=== PATIENT | male | born 1990 | race Caucasian/White ===

== ENCOUNTER 2019-05-27 07:27 | Emergency (ER) | payer OTHER ==
[~2019-05-27] VITALS: Ht 175.3 cm; Wt 85.3 kg
--- NOTE | 2019-05-27 07:50 | NUR ---
Patient ambulated to bed 4. RN evaluating patient at bedside.
[2019-05-27 07:54] VITALS: BP 103/65
--- NOTE | 2019-05-27 08:03 | NUR ---
Dr. De Leon is evaluating the patient at bedside.
[2019-05-27] MEDS ORDERED: ALBUTEROL SULFATE/IPRATROPIU 3 ML SOL IH ONE (08:05)
--- NOTE | 2019-05-27 08:20 | NUR ---
RT AT BEDSIDE.
--- NOTE | 2019-05-27 08:30 | NUR ---
C/O SOB WITH HACKING COUGH, THICK PHLEGM, BODY/EAR/THROAT PAIN X 2 DAYS ACCOMPANIED BY LOW GRADE FEVER .PT NOW WITH 3 EPISODES OF DIARRHEA . PT AWAKE , ALERT, AMBULATORY WITH STEADY GAIT. SCE , COARSE BREATH SOUND ALL THROUGH OUT. ACCOMPANIED BY CHEST PAIN OF 8/1O .SELF MEDICATED WITH MOTRIN WITH SOME RELIEF. HX--DENIES RX--NONE
--- NOTE | 2019-05-27 08:58 | NUR ---
xray at bedside.
--- NOTE | 2019-05-27 09:42 | NUR ---
Patient discharged with v/s stable. Written and verbal after care instructions given and explained regarding cough. Patient alert, oriented and verbalized understanding of instructions. Ambulatory with to car. All questions addressed prior to discharge. ID band removed. Patient advised to follow up with PMD. Rx of tamiflu ,ibuprofen,albuterol given. Patient educated on indication of medication including possible reaction and side effects. Opportunity to ask questions provided and answered. Excuse from work given.
[2019-05-27 09:43] VITALS: BP 107/52
== END 2019-05-27 09:42 | disposition home or self-care (01) ==
LOC: MED 07:27
DX: B34.9 Viral infection, unspecified (principal); R05 Cough; J02.9 Acute pharyngitis, unspecified; H83.8X9 Other specified diseases of inner ear, unspecified ear
CPT/HCPCS: 71045; 94640; 99283; J7620; Q0092

== ENCOUNTER 2019-05-31 17:05 | Emergency (ER) | payer OTHER ==
[~2019-05-31] VITALS: Ht 180.3 cm; Wt 88.9 kg
[2019-05-31 17:14] VITALS: BP 133/75
--- NOTE | 2019-05-31 17:18 | NUR ---
PT TO BED 12 WITH STEADY GAIT
--- NOTE | 2019-05-31 17:22 | NUR ---
FLU SWAB COLLECTED
--- NOTE | 2019-05-31 17:57 | NUR ---
29/M C/O LOWER BACK PAIN BILATERALLY X 2 DAYS WORSENING. DENIES UTI SYMPTOMS, DENIES INJURY. PAIN 9/10, CONSTANT, SHARP. WAS SEEN HERE 5 DAYS AGO, DX OF FLU, RX OF TAMIFLU AND INHALER AND TYLENOL. ALSO STATES CHEST PAIN WITH COUGH AND DEEP INSPIRATION. STATES MIGRAINE. STATES RHINORRHEA, COUGH, N/V X 2 NONBLOODY TODAY, DIARRHEA NONBLOODY. STATES FEELS WEAK. HX- GASTRIC BYPASS
--- NOTE | 2019-05-31 18:02 | NUR ---
SHARON MCCLAIN EVALUATING PT AT BEDSIDE.
[2019-05-31] MEDS: ONDANSETRON 4 MG/2 ML VIAL IVP ONE (18:18)
[2019-05-31] MEDS: KETOROLAC 30 MG/ML VIAL IVP ONE (18:18)
[2019-05-31] MEDS: DICYCLOMINE 20 MG/2 ML VIAL IM ONE (18:19)
[2019-05-31] MEDS: NACL 0.9% 1,000 ML IV ONE (18:19)
[2019-05-31 18:20] LABS: APPEARANCE,URINE CLEAR (CLEAR); BILIRUBIN,URINE NEGATIVE (NEGATIVE); BLOOD, URINE NEGATIVE (NEGATIVE); COLOR,URINE YELLOW (YELLOW); LEUKOCYTE ESTERASE ,URINE NEGATIVE (NEGATIVE); NITRITE, URINE NEGATIVE (NEGATIVE); UGLUCOSE TRACE (NEGATIVE)
[2019-05-31 18:53] LABS: BASOPHILS % (AUTO) 0.6 % (0.0-2.0); EOSINOPHILS # (AUTO) 0.1 K/uL (0-0.4); HEMATOCRIT 41.6 % (36-52); HEMOGLOBIN 13.4 g/dL (12.0-18.0); LYMPHOCYTES # (AUTO) 1.4 K/uL (2.0-11.5); LYMPHOCYTES % (AUTO) 23.1 % (20.5-51.1); MEAN CORPUSCULAR HEMOGLOBIN 29 pg (27-31); MEAN CORPUSCULAR HGB CONC 32 g/dL (33-37); MEAN CORPUSCULAR VOLUME 90.1 fL (80-94); MONOCYTES # (AUTO) 0.8 K/uL (0.8-1.0); MONOCYTES % (AUTO) 12.6 % (1.7-9.3); NEUTROPHILS # (AUTO) 3.9 K/uL (1.8-7.7); NEUTROPHILS % (AUTO) 61.7 % (42.2-75.2); PLATELET COUNT (AUTO) 260 K/uL (140-450); RED BLOOD CELL COUNT(AUTO) 4.62 MIL/uL (4.20-6.10); RED CELL DISTRIBUTION WIDTH 13.2 % (11.6-13.7); WHITE BLOOD COUNT (AUTO) 6.3 K/uL (4.8-10.8)
[2019-05-31 19:04] LABS: ANION GAP 10.4 (8-16); CARBON DIOXIDE 28.6 mmol/L (21-32); CREATININE 0.8 mg/dL (0.7-1.3)
[2019-05-31 19:09] LABS: ALBUMIN 3.3 g/dL (3.4-5.0); TOTAL BILIRUBIN 0.2 mg/dL (0.0-1.0)
[2019-05-31 19:29] VITALS: BP 133/75
--- NOTE | 2019-05-31 19:29 | NUR ---
Patient discharged with v/s stable. Written and verbal after care instructions given and explained. Patient alert, oriented and verbalized understanding of instructions. Ambulatory with steady gait. All questions addressed prior to discharge. ID band removed. Patient advised to follow up with PMD. Rx of ZOFRAN, AND ACETAMINOPHEN given. Patient educated on indication of medication including possible reaction and side effects. Opportunity to ask questions provided and answered.
== END 2019-05-31 19:29 | disposition home or self-care (01) ==
LOC: MED 17:05
DX: B34.9 Viral infection, unspecified (principal); Z98.84 Bariatric surgery status
CPT/HCPCS: 36415; 80053; 81003; 82150; 83690; 85025; 87804; 96361; 96372; 96374; 96375; 99283; J0500; J1885; J2405; J7030

== ENCOUNTER 2021-06-12 17:21 | Emergency (ER) | payer OTHER ==
[~2021-06-12] VITALS: Ht 175.3 cm; Wt 89.8 kg
[2021-06-12 18:01] VITALS: BP 128/73
[2021-06-12 20:00] VITALS: BP 120/78
--- NOTE | 2021-06-12 20:00 | NUR ---
Patient discharged with v/s stable. Written and verbal after care instructions given and explained. Patient verbalized understanding. Ambulatory with steady gait. All questions addressed prior to discharge. Advised to follow up with PMD.
== END 2021-06-12 20:00 | disposition home or self-care (01) ==
LOC: MED 17:21
DX: S61.012A Laceration without foreign body of left thumb without damage to nail, initial encounter (principal); Z98.84 Bariatric surgery status; W26.0XXA Contact with knife, initial encounter; Y93.89 Activity, other specified; Y92.89 Other specified places as the place of occurrence of the external cause; Y99.8 Other external cause status
CPT/HCPCS: 12001; 73140; 90471; 90715; 99283